=== PATIENT | female | born 1965 | race Two or more races ===

== ENCOUNTER 2016-10-18 11:41 | Emergency (ER) | payer MEDICAID, OTHER ==
[2016-10-18 12:49] LABS: PH,URINE 6.5 (5.0-8.0); SPECIFIC GRAVITY 1.015 (1.001-1.030); URINE BILIRUBIN NEGATIVE (NEGATIVE); URINE BLOOD 1+ (NEGATIVE); URINE GLUCOSE (UA) NEGATIVE (NEGATIVE); URINE LEUKOCYTE ESTERASE NEGATIVE (NEGATIVE); URINE NITRITE NEGATIVE (NEGATIVE); URINE PROTEIN NEGATIVE (NEGATIVE); URINE UROBILINOGEN NORMAL (0-1 mg/dl)
[2016-10-18 12:54] LABS: URINE APPEARANCE CLEAR; URINE COLOR LIGHT YELLOW
[2016-10-18 12:57] LABS: URINE BACTERIA RARE; URINE EPITHELIAL CELLS 0-1 /hpf; URINE WBC NEG /hpf
[2016-10-18 13:01] LABS: HCG,QUALITATIVE URINE NEGATIVE
--- NOTE | 2016-10-18 13:31 | RAD ---
HISTORY: Chronic low back pain, worse over the last 2 days. No known trauma COMPARISON: 08/07/2013 Findings: AP and lateral views of the lumbar spine with AP spot film of the lumbo-sacral junction are obtained. The development and bony structures are normal. There is no fracture, dislocation or destructive lesion. There is straightening of the normal lumbar lordosis likely on the basis of patient positioning or muscle spasm. The vertebral body heights are well-preserved. Mild height loss is present at multiple levels with minimal endplate hypertrophy, stable from prior study. Degenerative changes of the SI joints bilaterally are noted. The sacrum and sacroiliac joints are normal. IMPRESSION: Degenerative changes without fracture or dislocation. Overall study is fairly similar to prior exam.
[2016-10-18] MEDS ORDERED: IBUPROFEN 800 MG TABLET ONE (14:11)
[2016-10-18] MEDS ORDERED: PREDNISONE 20 MG TABLET ONE (14:11)
[2016-10-18] MEDS ORDERED: CYCLOBENZAPRINE HCL 10 MG TABLET ONE (14:11)
[2016-10-18] MEDS ORDERED: HYDROCODONE/ACETAMINOPHEN 5/325MG TABLET ONE (14:13)
== END 2016-10-18 14:25 | disposition home or self-care (01) ==
LOC: ED 11:41
DX: M54.5 Low back pain (principal); R35.0 Frequency of micturition
CPT/HCPCS: 81025; 81001; 72100; 99284; 51798; 99283; A9270 ×2; J7512